=== PATIENT | female | born 1945 | race Caucasian/White ===

== ENCOUNTER → 2016-09-13 | Outpatient (CLI) | payer MEDICARE | END | disposition home or self-care (01) | LOC: US 03:22 | DX: N18.9 Chronic kidney disease, unspecified (principal); N28.1 Cyst of kidney, acquired; N32.89 Other specified disorders of bladder ==

== ENCOUNTER → 2016-10-03 | Outpatient (CLI) | payer MEDICARE ==
[2016-10-03 13:49] LABS: BILIRUBIN NEGATIVE (NEGATIVE); BLOOD NEGATIVE (NEGATIVE); CLARITY SL CLOUDY (CLEAR); COLOR YELLOW (YELLOW); GLUCOSE NEGATIVE (NEGATIVE); KETONE NEGATIVE (NEGATIVE); LEUKO ESTERASE 1+ (NEGATIVE); NITRITE NEGATIVE (NEGATIVE); PROTEIN NEGATIVE (NEGATIVE); UROBILINOGEN 0.2 E.U./dl (0.2-1.0)
[2016-10-03 13:50] LABS: HEMATOCRIT 36.8 % (37.0-47.0); HEMOGLOBIN 11.9 g/dl (12.0-16.0)
[2016-10-03 13:53] LABS: MAGNESIUM 2.3 mg/dL (1.5-2.1); PHOSPHOROUS 2.5 mg/dL (2.5-4.9); POTASSIUM 4.2 mmol/L (3.5-5.1)
[2016-10-03 14:11] LABS: BACTERIA TRACE; MUCOUS TRACE; RBC 0-2 rbc/hpf (0-2); WBC 21-30 wbc/hpf (0-5)
== END | disposition home or self-care (01) ==
LOC: LAB 13:07
PROVIDERS: Internal Medicine Nephrology
DX: N18.9 Chronic kidney disease, unspecified (principal)

== ENCOUNTER → 2016-10-24 | Outpatient (CLI) | payer MEDICARE ==
[2016-10-24 08:39] LABS: POTASSIUM 3.8 mmol/L (3.5-5.1)
[2016-10-25 08:06] LABS: MICRO ALBUMIN/CRE RATIO 13.9 (0.0-30.0)
== END | disposition home or self-care (01) ==
LOC: LAB 07:12
PROVIDERS: Internal Medicine Nephrology
DX: N18.3 Chronic kidney disease, stage 3 (moderate) (principal)

== ENCOUNTER 2018-03-01 06:25 | Emergency (ER) | payer MEDICARE ==
[~2018-03-01] VITALS: Ht 157.4 cm; Wt 81.6 kg
--- NOTE | ~2018-03-01 | EKG ---
[place], [place] ELECTROCARDIOGRAM REPORT NAME: CORAZON ROUSE UNIT #: [id number] ROOM: DOCTOR: EPIPHANY DRAFT REPORT BIRTHDATE: [birth year] [facility] Test Date: 2018-03-01 Test Time: 06:48:51 Pat Name: CORAZON ROUSE Department: Room: Gender: F [employer]indle [employer] Carver: Florence Lopez : 1945 Requested By: STEPHANY VILCHIS Order Number: [id number] Reading MD: Wesley Donaldson MD Measurements Intervals [place] Rate: 85 P: 71 OK: 152 QRS: 1 QRSD: 84 T: 21 QT: 372 QTc: 443 Interpretive Statements Sinus rhythm Atrial premature complex Electronically Signed On 03-03-2018 7:18:33 PST by Wesley Donaldson MD CM:EKGRPT:ELECTROCARDIOGRAM REPORT 7 STEPHANY KRAUS DRAFT REPORT STEPHANY VILCHIS DO
[2018-03-01 06:47] LABS: HEMATOCRIT 30.2 % (37.0-47.0); HEMOGLOBIN 9.8 g/dl (12.0-16.0); MEAN CORPUSCULAR HGB 28.6 pg (27.0-31.0); MEAN CORPUSCULAR HGB CONC 32.5 g/dl (33.0-37.0); PLATELET COUNT AUTOMATED 259 10*3/uL (130-400); RED BLOOD COUNT 3.43 10*6/uL (4.10-5.10); RED CELL DISTRI WIDTH 12.3 % (0-14.5); WHITE BLOOD COUNT 11.5 10*3/uL (4.8-10.8)
[2018-03-01 07:14] LABS: PLATELET SUFFICIENCY NORMAL (NORMAL); TOTAL CELLS COUNTED 100 #CELLS
[2018-03-01 07:15] LABS: ALBUMIN 2.5 gm/dl (3.1-4.5); ALKALINE PHOSPHATASE 115 U/L (45-117); BUN 24 mg/dl (7-24); CHLORIDE 91 mmol/L (98-107); CREATININE 1.04 mg/dL (0.55-1.02); POTASSIUM 4.5 mmol/L (3.5-5.1); SGOT/AST 48 IU/L (3-35); SGPT/ALT 19 U/L (12-78); SODIUM 127 mmol/L (136-145); TOTAL PROTEIN 6.2 gm/dL (6.4-8.2)
[2018-03-01 07:19] LABS: TROPONIN I < 0.015 ng/ml (<0.045)
== END 2018-03-01 10:18 | disposition home or self-care (01) ==
LOC: ED 06:25
PROVIDERS: Student in an Organized Health Care Education/Training Program
DX: E16.2 Hypoglycemia, unspecified (principal); R41.82 Altered mental status, unspecified; R40.20 Unspecified coma; Z88.6 Allergy status to analgesic agent